=== PATIENT | female | born 1950 | race Caucasian/White ===

== ENCOUNTER 2023-02-18 13:00 | Emergency (ER) | payer MEDICARE, OTHER, SELFPAY ==
--- NOTE | ~2023-02-18 | CT_ITS ---
EXAMINATION: CT abdomen pelvis wo con DATE: 02/18/2023 14:48 INDICATION: Flank pain. Nausea. TECHNIQUE: Computed tomography (CT) of the abdomen and pelvis was performed without intravenous contr ast. Automated exposure control and iterative reconstruction technique were employed. Exam dose: 282 .49 mGy-cm total exam DLP. COMPARISON: None. FINDINGS: There is minimal discoid atelectasis or scarring at the middle and both lower lobes and marisela gula. No pulmonary infiltrate or consolidation at the included lung bases. Heart size is within normal range. There is coronary artery calcification. No pericardial or pleural effusion. Status post cholecystectomy. Diffuse hepatic steatosis. No hepatic, splenic, pancreatic or adrenal mass lesion. Up to approximately 7.5 cm exophytic upper pole left renal probable cyst; limited examination without the use of IV contrast material. No urinary tract calculus or hydroureteronephrosis is detected. The urinary bladder is relatively suzy cuated and unremarkable. There is atherosclerotic calcification but normal caliber of the abdominal aorta. No intraperitoneal or retroperitoneal or pelvic mass lesion or adenopathy or ascites is noted. Status post hysterectomy. Diverticulosis of the sigmoid and to a lesser extent cysts descending colon; no CT evidence of divert iculitis. Normal appendix. There is suggestion of some circumferential soft tissue thickening at the splenic flexure of the colo n. The patient has not had diagnostic: Workup by means of barium enema or colonoscopy recently, this would be recommended. No bowel obstruction, bowel wall thickening, pneumatosis or intraperitoneal free air. IMPRESSION: No urinary tract calculus or hydroureteronephrosis Probable 7.5 cm exophytic cyst of the upper pole of the left kidney; Limited examination due to lack of IV contrast material Suggestion of circumferential soft tissue thickening at the splenic flexure; if the patient has not h ad recent colon workup, this would be recommended Diverticulosis of the left colon; no evidence of diverticulitis Status post hysterectomy Hepatic steatosis Status post cholecystectomy Reviewed, dictated and finalized at [facility]. Reviewed, dictated and finalized at [facility]. [employer] IMPRESSION: No urinary tract calculus or hydroureteronephrosis Probable 7.5 cm exophytic cyst of the upper pole of the left kidney; Limited ex amination due to lack of IV contrast material Suggestion of circumferential soft tissue thickening at the splenic flexure; if the patient has not had recent colon workup, this would be recommended Diverticulosis of the left colon; no evidence of diverticulitis Status post hysterectomy Hepatic steatosis Status post cholecystectomy
[2023-02-18 13:19] VITALS: BP 169/84; PULSE 94; RESP 18; TEMP 36.6; O2SAT 100
--- NOTE | 2023-02-18 14:40 | PC.NURSE ---
Pt is worried about personal items and wants to take belongings to CT. Offered to lock pt items up but pt refused.
[2023-02-18 14:42] LABS: Basophils Absolute Auto 0.1 K/mm3 (0.0-0.1); Basophils Percent Auto 0.6 % (0.2-1.2); Eosinophils Absolute Auto 0.2 K/mm3 (0-0.3); Eosinophils Percent Auto 1.4 % (0-4.4); Hematocrit 41.2 % (37.0-47.0); Hemoglobin 13.6 g/dL (12.0-15.0); Immature Granulocyte Absolute 0.05 K/mm3 (0.00-0.031); Immature Granulocyte Percent A 0.4 % (0-0.5); Lymphocytes Absolute Auto 3.72 K/mm3 (0.9-3.2); Lymphocytes Percent Auto 26.6 % (18.3-44.2); Mean Corpuscular Hemoglobin 30.1 pg (26-34); Mean Corpuscular Volume 91.2 fl (80-100); Mean Platelet Volume 8.8 fl (7.4-10.4); Monocytes Percent Auto 6.9 % (2.6-8.5); Neutrophils Percent Auto 64.1 % (45.5-73.1); Platelet Count Result 357 k/mm3 (150-375); Red Blood Count 4.52 M/mm3 (4.2-5.4); Red Cell Distribution Width 12.2 % (11.5-14.5)
[2023-02-18 14:51] LABS: Appearance Urine Clear (Clear); Bacteria Urine None Seen /hpf; Bilirubin Urine Negative (Negative); Blood Urine Negative (Negative); Color Urine Yellow (Yellow); Glucose Urine UA Negative (Negative); Ketones Urine Negative (Negative); Leukocyte Esterase Ur Trace LEU/UL (Negative); Nitrate Urine Negative (Negative); Non Pathogenic Casts 0-2; Protein Urine Negative (Negative); RBC Urine 0-2 /hpf (0-2); Specific Grav Ur 1.013 (1.001-1.035); Squamous Epithelial Cell Urine Few /hpf (Few); Urobilinogen Urine 0.2 mg/dL (<2.0)
[2023-02-18 14:53] LABS: Add Urine Microscopic? YES
[2023-02-18 14:56] LABS: Alanine Aminotransferase 48 U/L (6-35); Albumin Level 4.5 g/dL (3.5-5.1); Alkaline Phosphatase 107 U/L (38-126); Anion Gap 12 mmol/L (8-16); Aspartate Amino Transferase 41 U/L (14-36); Bilirubin,Total 0.4 mg/dL (0.2-1.3); Blood Urea Nitrogen 15 mg/dL (7-17); Calcium 9.5 mg/dL (8.4-10.2); Carbon Dioxide 22 mmol/L (22-30); Chloride 103 mmol/L (98-107); Estimated CRCL calculation 62 ml/min; Estimated Glomerular Filt Rate > 60; Glucose 90 mg/dL (65-110); Potassium 3.9 mmol/L (3.4-5.0); Sodium 137 mmol/L (137-145)
[2023-02-18 15:09] VITALS: BP 149/83; O2SAT 96
[2023-02-18 15:16] VITALS: BP 148/85; O2SAT 97
[2023-02-18 15:31] VITALS: BP 151/83; O2SAT 97
[2023-02-18] MEDS: SODIUM CHLORIDE 0.9% IV 1,000 ML 999 ML IV CONT (15:52)
[2023-02-18] MEDS: MORPHINE SULFATE (*CRX) 4 MG/ML INJ IV PUSH (15:52)
[2023-02-18] MEDS: ONDANSETRON INJ 4 MG/2 ML VIAL IV PUSH (15:53)
--- NOTE | 2023-02-18 16:21 | ED.GENADULT ---
HPI - General Adult General Chief complaint: Recheck/Abnormal Lab/Rx Stated complaint: htn, high BG ,lethargy Time Seen by Provider: 02/18/23 14:26 History of Present Illness HPI narrative: Patient is a 72-year-old female who presents ER with multiple complaints. She reports that she has been having elevated blood pressures as well as elevated blood sugars chronically. She feels extreme fatigue. She has also been having some back pain. She is concerned that she is passing a kidney stone as she has history of kidney stones and has been seen by 2 separate urologist. No fevers or chills or sweats. No urinary frequency urgency or dysuria. No chest pain or chest pressure. No recent injury. Related Data Allergies Allergy/AdvReac Type Severity Reaction Status Date / Time No Known Allergies Allergy Verified 02/18/23 14:39 Review of Systems Review of Systems: All systems reviewed & are unremarkable except as noted in HPI and below Constitutional: Constitutional: Denies chills, Reports fatigue, Denies fever(s) and Reports weakness ENT: Reports system reviewed and no additional complaints, except as documented Cardiovascular: Cardiovascular: Reports no additional cardiovascular complaints Respiratory: Respiratory: Reports no additional respiratory complaints Gastrointestinal: Gastrointestinal: Reports no additional gastrointestinal complaints Genitourinary: Genitourinary: Reports no additional female genitourinary complaints Musculoskeletal: Musculoskeletal: Reports back pain, Denies arthralgias and Denies joint swelling Neurologic: Reports system reviewed and no additional complaints, except as documented PMFSH Past Medical History Medical History (Updated 02/18/23 @ 16:49 by Perez Khan MD) Diabetes Hyperlipidemia Hypertension Surgical History Surgical History (Updated 02/18/23 @ 16:27 by Perez Khan MD) History of cholecystectomy History of hysterectomy Exam Narrative: GENERAL: Well-appearing, well-nourished, and in no acute distress. HEAD: Normocephalic, atraumatic. EYES: PERRL and EOMI. ENT: Mucous membranes moist. CHEST: Clear to auscultation. No respiratory distress. HEART: Regular rate and rhythm. Normal peripheral pulses. ABDOMEN: Soft, nontender, nondistended, no CVA tenderness. EXTREMITIES: Normal range of motion. No edema. SKIN: Warm, dry, no rash. NEURO: Alert and oriented x3. PSYCH: Normal mood and affect. Course Course Emergency Course: patient resting comfortably. Informed of results. Nonspecific leukocytosis. Urinalysis with 6-10 whites with trace leukocyte esterase. No kidney stones passing. There is a left renal cyst that may be causing back pain. Patient would like something more than ibuprofen and Tylenol so she receives some cyclobenzaprine. Vital Signs Vital signs: Vital Signs Temperature 98 F 02/18/23 13:19 Pulse Rate 94 02/18/23 13:19 Respiratory Rate 18 02/18/23 13:19 Blood Pressure 169/84 H 02/18/23 13:19 Pulse Oximetry 100 02/18/23 13:19 Oxygen Delivery Room Air 02/18/23 13:19 Temperature 98 F 02/18/23 13:19 Pulse Rate 94 02/18/23 13:19 Respiratory Rate 18 02/18/23 13:19 Blood Pressure 179/88 H 02/18/23 17:02 Pulse Oximetry 97 02/18/23 17:02 Oxygen Delivery Room Air 02/18/23 13:19 Medical Decision Making Vital Signs Vital Signs: Vital Signs Temperature 98 F 02/18/23 13:19 Pulse Rate 94 02/18/23 13:19 Respiratory Rate 18 02/18/23 13:19 Blood Pressure 169/84 H 02/18/23 13:19 Pulse Oximetry 100 02/18/23 13:19 Oxygen Delivery Room Air 02/18/23 13:19 Temperature 98 F 02/18/23 13:19 Pulse Rate 94 02/18/23 13:19 Respiratory Rate 18 02/18/23 13:19 Blood Pressure 179/88 H 02/18/23 17:02 Pulse Oximetry 97 02/18/23 17:02 Oxygen Delivery Room Air 02/18/23 13:19 Lab Data 02/18/23 14:33 02/18/23 14:33 Labs: Lab Resu
[2023-02-18 17:02] VITALS: BP 179/88; O2SAT 97
== END 2023-02-18 17:21 | disposition home or self-care (01) ==
PROVIDERS: Emergency Provider Emergency Medicine; PCP Physician Assistant
DX: R53.83 Other fatigue (principal); N28.1 Cyst of kidney, acquired; M54.9 Dorsalgia, unspecified; E11.9 Type 2 diabetes mellitus without complications; E78.5 Hyperlipidemia, unspecified; Z90.49 Acquired absence of other specified parts of digestive tract; Z90.710 Acquired absence of both cervix and uterus; R93.3 Abnormal findings on diagnostic imaging of other parts of digestive tract; K57.90 Diverticulosis of intestine, part unspecified, without perforation or abscess without bleeding; K76.0 Fatty (change of) liver, not elsewhere classified
CPT/HCPCS: 36415; 74176; 80053; 81001; 85025; 87086; 87147; 87181; 87186; 96361; 96374; 96375; 99284; J2270; J2405; J7030

== ENCOUNTER 2023-04-08 13:44 | Outpatient (CLI) | payer MEDICARE, OTHER, SELFPAY ==
--- NOTE | ~2023-04-08 | CT_ITS ---
EXAMINATION: CT abdomen wo/w con DATE: 04/08/2023 14:36 INDICATION: Left renal cyst. TECHNIQUE: Computed tomography (CT) of the abdomen was performed without and with 100 mL Omnipaque 35 0 intravenous contrast. Automated exposure control and iterative reconstruction technique were employ ed. The dose-length product was 843.36 mGy-cm. COMPARISON: CT abdomen and pelvis 02/18/2023 FINDINGS: The visualized portions of the lung bases demonstrate mild atelectasis. There is mild bronc hiectasis in the lower lobes. No pleural effusion. The heart size is normal. No pericardial effusion. There is diffuse hepatic steatosis. There are changes of cholecystectomy. The spleen, pancreas, and adrenal glands are normal. There is cortical thinning of the kidneys. There are cysts in the kidneys measuring up to 12 mm on the left. In the left kidney, there is a 7.5 cm cyst with a few thin septati ons with perceived enhancement (Bosniak type II). There are no dilated loops of bowel. There are no p athologically enlarged lymph nodes. There is no free intraperitoneal fluid. There is mild thoracic an d lumbar spondylosis. IMPRESSION: 1. Benign cysts in the kidneys. Reviewed, dictated and finalized at [facility]. GER BACKGROUND
[2023-04-08 14:11] LABS: Estimated Glomerular Filt Rate 55
== END 2023-04-08 13:45 | disposition home or self-care (01) ==
LOC: ANHIMG 13:47
PROVIDERS: PCP Physician Assistant; Visit Provider Urology
DX: N28.1 Cyst of kidney, acquired (principal)
CPT/HCPCS: 74170; Q9967